=== PATIENT | female | born 1945 | race Two or more races ===

== ENCOUNTER 2018-04-05 09:00 | Outpatient (CLI) | payer OTHER | END 2018-04-05 09:10 | disposition home or self-care (01) | LOC: TOM 09:00 | DX: K56.50 Intestinal adhesions [bands], unspecified as to partial versus complete obstruction (principal); R19.5 Other fecal abnormalities ==

== ENCOUNTER 2022-01-26 09:11 | Outpatient (CLI) | payer OTHER | END 2022-01-26 09:21 | disposition home or self-care (01) | LOC: TOM 09:11 | PROVIDERS: ATTEND Internal Medicine Gastroenterology | DX: R19.5 Other fecal abnormalities (principal); K56.50 Intestinal adhesions [bands], unspecified as to partial versus complete obstruction ==